=== PATIENT | male | born 1970 | race Caucasian/White ===

== ENCOUNTER 2022-10-05 03:01 | Emergency (ER) | payer OTHER ==
[~2022-10-05] VITALS: Ht 172.7 cm; Wt 70.7 kg
[2022-10-05 02:58] VITALS: BP 125/92
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
== END 2022-10-05 03:22 | disposition home or self-care (01) ==
LOC: ER FS 03:01
DX: Z02.89 Encounter for other administrative examinations (principal)